=== PATIENT | male | born 1950 | race Caucasian/White ===

== ENCOUNTER 2024-08-15 05:57 | Day surgery (SDC) | payer BC ==
[2024-08-12 16:35] VITALS: BMI 22.4
[2024-08-15 07:26] VITALS: TEMP 97.7
[2024-08-15] MEDS ORDERED: SIMETHICONE 40 MG/0.6 ML BOTTLE ONE (07:31)
[2024-08-15 08:59] VITALS: BP 134/76; PULSE 57; RESP 14
== END 2024-08-15 09:30 | disposition home or self-care (01) ==
LOC: JASU-ENDO 05:57
PROVIDERS: ATTEND Internal Medicine Gastroenterology
PROC: 0DB38ZX Excision of Lower Esophagus, Via Natural or Artificial Opening Endoscopic, Diagnostic (ICD-10-PCS; 2024-08-15)
PROC: 0DB78ZX Excision of Stomach, Pylorus, Via Natural or Artificial Opening Endoscopic, Diagnostic (ICD-10-PCS; 2024-08-15)
PROC: 0DB68ZX Excision of Stomach, Via Natural or Artificial Opening Endoscopic, Diagnostic (ICD-10-PCS; principal; 2024-08-15 08:00)
DX: K21.00 Gastro-esophageal reflux disease with esophagitis, without bleeding (principal); K31.7 Polyp of stomach and duodenum; K29.50 Unspecified chronic gastritis without bleeding
CPT/HCPCS: 88305-TC; 88342-TC